=== PATIENT | female | born 1980 | race African-American/Black ===

== ENCOUNTER 2016-11-16 19:01 | Emergency (ER) | payer SELFPAY ==
--- NOTE | 2016-11-16 19:39 | RAD ---
PA AND LATERAL OF THE CHEST 11/16/16 INDICATION: Chest pain. IMPRESSION: No acute cardiopulmonary abnormality. COMMENTS: No comparisons are available. The lungs are clear. The cardiomediastinal silhouette is normal. There are skin folds overlying the right chest wall. No acute osseous abnormality is evident. POS: [facility]
[2016-11-16 19:55] LABS: #Basophils 0.1 thou/uL (0.0-0.2); #Eosinphils 0.2 thou/uL (0.0-0.7); #Monocytes 0.6 thou/uL (0.11-0.59); #Neutrophils 2.8 thou/uL (1.40-6.50); %Basophils 1.2 % (0.0-1.0); %Eosinophils 4.3 % (0.0-10.0); %Lymphocytes 34.5 % (21.0-51.0); %Monocytes 10.1 % (0.0-10.0); Hemoglobin 13.4 g/dL (12.0-16.0); Mean Corpuscular HGB CONC 32.7 g/dL (32.0-36.0); Mean Corpuscular Hemoglobin 29.5 pg (27.0-31.0); Mean Corpuscular Volume 90.2 fl (81.0-99.0); Mean Platelet Volume 7.9 fL (7.4-10.4); Platelet Count 190 thou/uL (130-400); RBC Distribution Width 11.4 % (11.5-14.5); Red Blood Cell (RBC) Count 4.53 mill/uL (4.20-5.40); White Blood Cell (WBC) Count 5.7 thou/uL (4.8-10.8)
[2016-11-16 20:13] LABS: ALT (SGPT) 7 U/L (8-55); AST (SGOT) 15 U/L (5-34); Albumin 3.8 g/dL (3.5-5.0); Alkaline Phosphatase 39 U/L (40-150); Anion Gap 13 mmol/L (10-20); BUN (Urea Nitrogen) 10 mg/dL (7.0-18.7); Bilirubin, Total Less than 0.3 mg/dL (0.2-1.2); Calc. Creatinine Clearance 0 mL/min (70-130); Carbon Dioxide 24 mmol/L (22-29); Chloride 108 mmol/L (98-107); Estimated GFR-MDRD 68; Globulin 3.1 g/dL (2.4-3.5); Glucose 88 mg/dL (70-105); Potassium 3.6 mmol/L (3.5-5.1); Protein, Total 6.9 g/dL (6.0-8.3); Sodium 141 mmol/L (136-145)
[2016-11-16 20:16] LABS: CKMB 0.8 ng/mL (0-6.6); Troponin I 0.015 ng/mL (< 0.028)
[2016-11-16] MEDS ORDERED: Benzonatate 100 MG CAP ONE (20:51)
[2016-11-16] MEDS ORDERED: Ibuprofen 800 MG TAB ONE (20:51)
[2016-11-16] MEDS ORDERED: Dexamethasone 4 MG TAB ONE (20:51)
== END 2016-11-16 20:58 | disposition home or self-care (01) ==
LOC: MADERS 19:01
DX: J20.9 Acute bronchitis, unspecified (principal); I10 Essential (primary) hypertension; F17.210 Nicotine dependence, cigarettes, uncomplicated
CPT/HCPCS: 71020; 80053; 82553; 84484; 85025; 85379; 93005; J8540

== ENCOUNTER 2017-08-14 20:13 | Emergency (ER) | payer SELFPAY ==
[2017-08-14] MEDS ORDERED: hydrALAZINE 20 MG/ML VIAL ONE (21:09)
[2017-08-14] MEDS ORDERED: Aspirin 325 MG TAB ONE (21:09)
[2017-08-14 21:21] LABS: ALT (SGPT) 11 U/L (8-55); AST (SGOT) 22 U/L (5-34); Alkaline Phosphatase 44 U/L (40-150); Anion Gap 17 mmol/L (10-20); BUN (Urea Nitrogen) 8 mg/dL (7.0-18.7); Bilirubin, Total 0.3 mg/dL (0.2-1.2); Calc. Creatinine Clearance 0 mL/min (70-130); Calcium 9.6 mg/dL (7.8-10.44); Carbon Dioxide 22 mmol/L (22-29); Chloride 105 mmol/L (98-107); Estimated GFR-MDRD Greater than 90; Glucose 94 mg/dL (70-105); Potassium 3.7 mmol/L (3.5-5.1); Sodium 140 mmol/L (136-145)
[2017-08-14 21:22] LABS: Band 1 % (5-11); Eosinophils 2 % (0-10); Hemoglobin 13.6 g/dL (12.0-16.0); Lymphocytes 21 % (21-51); MDiff Complete? YES; Mean Corpuscular HGB CONC 32.8 g/dL (32.0-36.0); Mean Corpuscular Hemoglobin 28.3 pg (27.0-31.0); Mean Corpuscular Volume 86.2 fl (81.0-99.0); Monocytes 9 % (0-10); Neutrophil 66 % (42-75); PLT Morphology Comment Appears Adequate; Platelet Count 171 thou/uL (130-400); RBC Distribution Width 11.4 % (11.5-14.5); RBC Morphology Normal; Reactive Lymphocytes 1 % (0-10); Red Blood Cell (RBC) Count 4.81 mill/uL (4.20-5.40); White Blood Cell (WBC) Count 5.6 thou/uL (4.8-10.8)
--- NOTE | 2017-08-14 21:38 | RAD ---
CHEST TWO VIEWS: HISTORY: Chest pain and cough. Hypertension. COMPARISON: Chest radiographs from 11/16/2016. FINDINGS: Lungs without focal air space consolidation, pneumothorax, or effusion. The cardiac silhouette and m ediastinal contour are within normal limits. No acute osseous abnormality. IMPRESSION: No acute intrathoracic abnormality nor significant change. POS: [facility]
[2017-08-14 22:25] LABS: Bilirubin Negative (Negative); Blood, Urine Negative (Negative); Clarity Clear (Clear); Glucose, Urine (Dipstick) Negative (Negative); Leukocyte Trace (Negative); Nitrite Negative (Negative); Protein, Urine (Dipstick) Negative (Neg-Trace); Specific Gravity, Urine 1.015 (1.005-1.030)
[2017-08-14 22:28] LABS: RBC/HPF 0-3 HPF (0-3)
[2017-08-14 22:29] LABS: Bacteria/HPF None Seen HPF (None Seen); Squamous Epithelial 0-3 HPF (0-3)
== END 2017-08-14 21:52 | disposition home or self-care (01) ==
LOC: MADERS 20:13
DX: J20.9 Acute bronchitis, unspecified (principal); I10 Essential (primary) hypertension; F17.210 Nicotine dependence, cigarettes, uncomplicated
CPT/HCPCS: 71046; 80053; 81003; 81015; 84484; 85025; 93005; J0360; J7620

== ENCOUNTER 2019-01-01 08:46 | Emergency (ER) | payer SELFPAY ==
[~2019-01-01 08:46] MED LIST: Sodium Chloride 0.9% 1,000 ML BAG ONE
[2019-01-01] MEDS ORDERED: Ketorolac Tromethamine 30 MG/ML VIAL ONE (09:17)
[2019-01-01] MEDS ORDERED: Ondansetron PF 4 MG/2 ML Vial ONE (09:17)
== END 2019-01-01 10:40 | disposition home or self-care (01) ==
LOC: MADERS 08:46
DX: G44.209 Tension-type headache, unspecified, not intractable (principal); I10 Essential (primary) hypertension; F17.210 Nicotine dependence, cigarettes, uncomplicated
CPT/HCPCS: 96374; 96375; J1885; J2405; J7050

== ENCOUNTER 2020-02-08 09:59 | Emergency (ER) | payer SELFPAY | END 2020-02-08 10:58 | disposition home or self-care (01) | LOC: MADERS 09:59 | DX: T63.441A Toxic effect of venom of bees, accidental (unintentional), initial encounter (principal); I10 Essential (primary) hypertension; Z79.899 Other long term (current) drug therapy | CPT/HCPCS: 96372; 99282; J1040 ==